=== PATIENT | female | born 1960 | race African-American/Black ===

== ENCOUNTER → 2022-02-22 | Outpatient (CLI) | payer OTHER | LOC: MC.RAD 10:06 | DX: Z12.31 Encounter for screening mammogram for malignant neoplasm of breast (principal) ==

== ENCOUNTER → 2023-04-17 | Outpatient (CLI) | payer OTHER ==
[~2023-04-17] MED LIST: BENICAR HCT 251 TAB PO; FLONASE NASAL S16 GM NS; TENORMIN100 MG PO; TRAVATAN Z 2.52.5 ML OU
== END ==
LOC: MC.RAD 07:55
DX: Z12.31 Encounter for screening mammogram for malignant neoplasm of breast (principal)